=== PATIENT | male | born 1985 | race Caucasian/White ===

== ENCOUNTER → 2020-05-10 | Outpatient (CLI) | payer BC, OTHER ==
[2014-03-06 00:45] VITALS: BP 129/80
--- NOTE | 2020-05-10 16:52 | RAD ---
EXAM: Carotid Doppler sonogram. HISTORY: Dizziness. Atherosclerosis. TECHNIQUE: Lema scale and color Doppler sonographic evaluation of the neck with spectral waveform pierce lysis was performed and static images are submitted for review. FINDINGS: The peak systolic velocity within the right common carotid artery is 130 cm/sec. The peak s ystolic velocity within the right internal carotid artery is 82 cm/sec and the end diastolic velocity within the right internal carotid artery is 31 cm/sec. The right ICA/CCA ratio is 0.63. The peak systolic velocity within the left common carotid artery is 150 cm/sec. The peak systolic victoriano ocity within the left internal carotid artery is 81 cm/sec and the end diastolic velocity within the left internal carotid artery is 28 cm/sec. The left ICA/CCA ratio is 0.54. There is normal antegrade flow within both vertebral arteries. IMPRESSION: No Doppler evidence of greater than 50 percent stenosis involving the internal carotid ar teries. PQRS Compliance Statement - Stenosis calculations for CT, MR and conventional angiography are based u steve measurement of the distal ICA diameter in accordance with the NASCET methodology. Stenosis calcu lations for carotid ultrasound studies are derived from validated velocity criteria which are known t o correlate with the NASCET methodology. Electronically signed by: Graciela Oshea MD (05/10/2020 4:50 PM) [id number]
== END ==
LOC: US 15:48
PROVIDERS: ATTEND Family Medicine
DX: R42 Dizziness and giddiness (principal)
CPT/HCPCS: 93880